=== PATIENT | female | born 1985 | race Caucasian/White ===

== ENCOUNTER 2018-12-26 04:01 | Emergency (ER) | payer SELFPAY | END 2018-12-26 06:32 | disposition home or self-care (01) | LOC: JER 04:01 ==

== ENCOUNTER 2020-09-15 23:41 | Emergency (ER) | payer SELFPAY ==
[2020-09-15 23:54] VITALS: BP 116/73; PULSE 82; TEMP 98.2; BMI 37.2
[2020-09-16] MEDS ORDERED: DIPHTH,PERTUSS(ACELL),TET 0.5 ML DISP.SYRIN IM ONE ×2 (00:21→00:26)
== END 2020-09-16 01:24 | disposition home or self-care (01) ==
LOC: JER 23:41
PROC: 3E0234Z Introduction of Serum, Toxoid and Vaccine into Muscle, Percutaneous Approach (ICD-10-PCS; principal; 2020-09-15)
PROC: 0HQFXZZ Repair Right Hand Skin, External Approach (ICD-10-PCS; 2020-09-15)
DX: S61.210A Laceration without foreign body of right index finger without damage to nail, initial encounter (principal)
CPT/HCPCS: 90715; 99284-25

== ENCOUNTER 2020-12-28 15:58 | Emergency (ER) | payer SELFPAY ==
[2020-12-28 16:22] VITALS: BP 122/76; PULSE 74; TEMP 98.3; BMI 29.2
== END 2020-12-28 17:18 | disposition home or self-care (01) ==
LOC: JERFT 15:58
DX: H00.015 Hordeolum externum left lower eyelid (principal)
CPT/HCPCS: 99283-25

== ENCOUNTER 2021-07-26 16:43 | Emergency (ER) | payer SELFPAY ==
[2021-07-26 16:55] VITALS: BP 101/54; PULSE 70; TEMP 98.3; BMI 29.2
[2021-07-26] MEDS ORDERED: SODIUM CHLORIDE 1,000 ML IV STA (17:19)
[2021-07-26 18:03] LABS: HCG,QUALITATIVE URINE Positive
[2021-07-26 18:06] LABS: EPI CELLS >36 /uL (0-25.1); HYALINE CASTS 0 /uL (0-3.1); PH,URINE 7.5 (5.0-8.0); URINE APPEARANCE CLEAR; URINE BILIRUBIN NEGATIVE (NEGATIVE); URINE COLOR YELLOW; URINE GLUCOSE (UA) NEGATIVE (NEGATIVE); URINE KETONE NEGATIVE (NEGATIVE); URINE LEUK ESTERASE TRACE (NEGATIVE); URINE NITRITE NEGATIVE (NEGATIVE); URINE PROTEIN NEGATIVE (NEGATIVE); URINE RBC 2 /uL (0-23.9); URINE UROBILINOGEN 0.2 mg/dL (0.2-1.0); URINE WBC 20 /uL (0-25.8)
[2021-07-26 18:17] LABS: BASO % 0.3 % (0-2.0); EOS % 1.4 % (0-4.5); HEMATOCRIT 36.9 % (32.4-45.2); HEMOGLOBIN 12.6 GM/dL (10.7-15.3); LYMPH % 26.9 % (8-40); MCH 27.9 pg (25.7-33.7); MCHC 34.3 g/dl (32.0-36.0); MEAN CELL VOLUME 81.5 fl (80-96); MEAN PLT VOLUME 6.9 fl (7.5-11.1); MONO % 6.6 % (3.8-10.2); NEUT % 64.8 % (42.8-82.8); PLATELET COUNT 341 10^3/uL (134-434); RBC 4.52 M/mm3 (3.60-5.2); RDW 14.6 % (11.6-15.6); WHITE BLOOD COUNT 9.3 K/mm3 (4.0-10.0)
[2021-07-26 18:27] LABS: INR 1.05 (0.83-1.09); PROTHROMBIN TIME (PATIENT) 12.1 SEC (9.7-13.0)
[2021-07-26 18:30] LABS: ACTIVATED PTT 29.8 SECONDS (25.2-36.5)
[2021-07-26 18:38] LABS: ALBUMIN 2.9 g/dl (3.4-5.0); BLOOD UREA NITROGEN 8.4 mg/dL (7-18)
[2021-07-26 18:41] LABS: CREATININE 0.6 mg/dL (0.55-1.3)
[2021-07-26 18:42] LABS: BILIRUBIN,TOTAL 0.2 mg/dL (0.2-1); TOT PROT 7.3 g/dl (6.4-8.2)
[2021-07-26 19:11] LABS: URINE BACTERIA NONE SEEN /uL (0-1359)
== END 2021-07-26 20:48 | disposition home or self-care (01) ==
LOC: JER 16:43
PROC: 3E0337Z Introduction of Electrolytic and Water Balance Substance into Peripheral Vein, Percutaneous Approach (ICD-10-PCS; principal; 2021-07-26)
DX: O26.891 Other specified pregnancy related conditions, first trimester (principal); R10.9 Unspecified abdominal pain; Z3A.01 Less than 8 weeks gestation of pregnancy
CPT/HCPCS: 36415; 76817-TC; 80053; 81003; 83690; 84702; 84703; 85025; 85610; 85730; 87086; 99284-25

== ENCOUNTER 2021-08-24 17:34 | Emergency (ER) | payer OTHER ==
[2021-08-24 17:54] VITALS: TEMP 98.6; BMI 37.5
[2021-08-24] MEDS ORDERED: SODIUM CHLORIDE 0.9% 500 ML INFUS.BAG IV ONE (19:38)
[2021-08-24 20:26] LABS: BASO % 0.2 % (0-2.0); HEMOGLOBIN 12.3 GM/dL (10.7-15.3); LYMPH % 22.6 % (8-40); MCHC 34.2 g/dl (32.0-36.0); MEAN PLT VOLUME 7.2 fl (7.5-11.1); MONO % 5.2 % (3.8-10.2); PLATELET COUNT 333 10^3/uL (134-434); RDW 13.9 % (11.6-15.6); WHITE BLOOD COUNT 10.8 K/mm3 (4.0-10.0)
[2021-08-24 20:41] LABS: BLOOD UREA NITROGEN 7.6 mg/dL (7-18); CALCIUM 8.9 mg/dL (8.5-10.1)
[2021-08-24 20:44] LABS: CREATININE 0.6 mg/dL (0.55-1.3)
[2021-08-24 20:46] LABS: BILIRUBIN,TOTAL 0.3 mg/dL (0.2-1); TOT PROT 7.5 g/dl (6.4-8.2)
[2021-08-24 21:31] LABS: EPI CELLS 20 /uL (0-25.1); HYALINE CASTS 0 /uL (0-3.1); URINE APPEARANCE CLEAR; URINE BACTERIA 144 /uL (0-1359); URINE BILIRUBIN NEGATIVE (NEGATIVE); URINE COLOR YELLOW; URINE GLUCOSE (UA) NEGATIVE (NEGATIVE); URINE KETONE NEGATIVE (NEGATIVE); URINE LEUK ESTERASE TRACE (NEGATIVE); URINE NITRITE NEGATIVE (NEGATIVE); URINE PROTEIN NEGATIVE (NEGATIVE); URINE RBC 32 /uL (0-23.9); URINE WBC 20 /uL (0-25.8)
[2021-08-24 22:04] VITALS: BP 106/69; PULSE 71
== END 2021-08-24 22:05 | disposition home or self-care (01) ==
LOC: JER 17:34
DX: O30.001 Twin pregnancy, unspecified number of placenta and unspecified number of amniotic sacs, first trimester (principal); O20.9 Hemorrhage in early pregnancy, unspecified; O23.591 Infection of other part of genital tract in pregnancy, first trimester; Z3A.09 9 weeks gestation of pregnancy
CPT/HCPCS: 36415; 76817-TC; 80053; 81003; 84702; 85025; 86850; 86900; 86901; 87086; 99284-25

== ENCOUNTER 2021-12-08 20:34 | Emergency (ER) | payer OTHER ==
[~2021-12-08 20:34] MED LIST: ceFAZolin 2 GRAM PREMIX BAG IVPB ONE
[2021-12-08 20:50] VITALS: BMI 37.8
[2021-12-08 22:39] LABS: EPI CELLS 12 /uL (0-25.1); HYALINE CASTS 4 /uL (0-3.1); PH,URINE 6.5 (5.0-8.0); URINE APPEARANCE CLEAR; URINE BACTERIA 421 /uL (0-1359); URINE BILIRUBIN NEGATIVE (NEGATIVE); URINE COLOR DK YELLOW; URINE GLUCOSE (UA) NEGATIVE (NEGATIVE); URINE KETONE TRACE (NEGATIVE); URINE LEUK ESTERASE 2+ (NEGATIVE); URINE NITRITE NEGATIVE (NEGATIVE); URINE PROTEIN TRACE (NEGATIVE); URINE RBC 14 /uL (0-23.9); URINE WBC 259 /uL (0-25.8)
[2021-12-08] MEDS ORDERED: LACTATED RINGERS SOLUTION 1,000 ML IV ONE (23:30)
[2021-12-08] MEDS ORDERED: ceFAZolin SODIUM 1 GM VIAL ONE (23:43)
[2021-12-09] MEDS ORDERED: CEFAZOLIN SODIUM 2 GM in DEXTROSE 5%-WATER 100 ML IVPB ONE (00:45)
[2021-12-09] MEDS ORDERED: LACTATED RINGERS SOLUTION 1,000 ML/1,000 ML INFUS.BAG IV SCH (00:45)
[2021-12-09 01:26] VITALS: BP 102/55; PULSE 77; RESP 18; TEMP 98
== END 2021-12-09 02:37 | disposition home or self-care (01) ==
LOC: JER 20:34
DX: O30.002 Twin pregnancy, unspecified number of placenta and unspecified number of amniotic sacs, second trimester (principal); O34.32 Maternal care for cervical incompetence, second trimester; Z3A.25 25 weeks gestation of pregnancy
CPT/HCPCS: 76815; 81003; 87086; 99281-25

== ENCOUNTER 2021-12-28 02:23 | Emergency (ER) | payer OTHER ==
[2021-12-28 02:46] VITALS: RESP 20; BMI 33.8
[2021-12-28] MEDS ORDERED: SODIUM CHLORIDE 0.9% 500 ML INFUS.BAG IV ONE (03:31)
[2021-12-28] MEDS ORDERED: ONDANSETRON 4 MG/2 ML VIAL IVPUSH ONE (03:31)
[2021-12-28] MEDS ORDERED: FAMOTIDINE 20 MG/50 ML IVPB 20 MG/50 ML MG IVPB ONE ×2 (03:31→03:54)
[2021-12-28] MEDS ORDERED: ONDANSETRON 4 MG/2 ML VIAL ONE (03:55)
[2021-12-28 04:39] LABS: CALCIUM 8.5 mg/dL (8.5-10.1)
[2021-12-28 04:40] LABS: ALBUMIN 2.9 g/dl (3.4-5.0); BLOOD UREA NITROGEN 15.8 mg/dL (7-18)
[2021-12-28 04:43] LABS: CREATININE 0.9 mg/dL (0.55-1.3)
[2021-12-28 04:45] LABS: BILIRUBIN,TOTAL 0.2 mg/dL (0.2-1); TOT PROT 6.8 g/dl (6.4-8.2)
[2021-12-28 05:08] LABS: BASO % 0.8 % (0-2.0); EOS % 5.6 % (0-4.5); HEMATOCRIT 31.2 % (32.4-45.2); HEMOGLOBIN 10.5 GM/dL (10.7-15.3); LYMPH % 22.9 % (8-40); MCH 28.5 pg (25.7-33.7); MCHC 33.7 g/dl (32.0-36.0); MEAN CELL VOLUME 84.6 fl (80-96); MEAN PLT VOLUME 7.4 fl (7.5-11.1); MONO % 6.1 % (3.8-10.2); NEUT % 64.6 % (42.8-82.8); PLATELET COUNT 402 10^3/uL (134-434); RBC 3.69 M/mm3 (3.60-5.2); RDW 13.8 % (11.6-15.6); WHITE BLOOD COUNT 10.2 K/mm3 (4.0-10.0)
[2021-12-28] MEDS ORDERED: ACETAMINOPHEN 1000 MG/100 ML BAG IVPB ONE (05:32)
[2021-12-28] MEDS ORDERED: ACETAMINOPHEN INJECTION 100 ML IVPB ONE (05:32)
[2021-12-28 05:59] LABS: EPI CELLS 18 /uL (0-25.1); HYALINE CASTS 0 /uL (0-3.1); PH,URINE 5.5 (5.0-8.0); URINE APPEARANCE CLEAR; URINE BACTERIA 196 /uL (0-1359); URINE BILIRUBIN NEGATIVE (NEGATIVE); URINE COLOR YELLOW; URINE GLUCOSE (UA) NEGATIVE (NEGATIVE); URINE KETONE NEGATIVE (NEGATIVE); URINE LEUK ESTERASE NEGATIVE (NEGATIVE); URINE NITRITE NEGATIVE (NEGATIVE); URINE PROTEIN NEGATIVE (NEGATIVE); URINE RBC 18 /uL (0-23.9); URINE UROBILINOGEN 0.2 mg/dL (0.2-1.0); URINE WBC 11 /uL (0-25.8)
[2021-12-28 10:18] VITALS: BP 102/59; PULSE 54; TEMP 97
== END 2021-12-28 10:52 | disposition home or self-care (01) ==
LOC: JER 02:23
PROC: 3E0333Z Introduction of Anti-inflammatory into Peripheral Vein, Percutaneous Approach (ICD-10-PCS; principal; 2021-12-28)
PROC: 3E033GC Introduction of Other Therapeutic Substance into Peripheral Vein, Percutaneous Approach (ICD-10-PCS; 2021-12-28)
PROC: 3E033GC Introduction of Other Therapeutic Substance into Peripheral Vein, Percutaneous Approach (ICD-10-PCS; 2021-12-28)
DX: K80.80 Other cholelithiasis without obstruction (principal)
CPT/HCPCS: 0241U-QW; 36415; 76705-TC; 80053; 81003; 83690; 84703; 85025; 87086; 87186; 93005; 93010; 99285-25

== ENCOUNTER 2022-01-08 19:10 | Inpatient (IN) | payer OTHER ==
[2022-01-08] MEDS ORDERED: ACETAMINOPHEN 1000 MG/100 ML BAG IVPB ONE (19:54)
[2022-01-08] MEDS ORDERED: ONDANSETRON 4 MG/2 ML VIAL IVPUSH ONE (19:54)
[2022-01-08] MEDS ORDERED: SODIUM CHLORIDE 0.9% 500 ML INFUS.BAG IV ONE (19:54)
[2022-01-08] MEDS ORDERED: ACETAMINOPHEN INJECTION 100 ML IVPB ONE (20:12)
[2022-01-08] MEDS ORDERED: ONDANSETRON 4 MG/2 ML VIAL ONE (20:12)
[2022-01-08 20:46] LABS: BASO % 0.7 % (0-2.0); EOS % 2.5 % (0-4.5); HEMATOCRIT 33.6 % (32.4-45.2); HEMOGLOBIN 11.2 GM/dL (10.7-15.3); LYMPH % 21.4 % (8-40); MCH 27.3 pg (25.7-33.7); MCHC 33.3 g/dl (32.0-36.0); MEAN CELL VOLUME 82.1 fl (80-96); MEAN PLT VOLUME 8.1 fl (7.5-11.1); MONO % 6.4 % (3.8-10.2); PLATELET COUNT 374 10^3/uL (134-434); RBC 4.09 M/mm3 (3.60-5.2); RDW 13.4 % (11.6-15.6); WHITE BLOOD COUNT 8.8 K/mm3 (4.0-10.0)
[2022-01-08 20:53] LABS: INR 0.99 (0.83-1.09); PROTHROMBIN TIME (PATIENT) 11.4 SEC (9.7-13.0)
[2022-01-08 20:56] LABS: ACTIVATED PTT 18.5 SECONDS (25.2-36.5)
[2022-01-08 21:15] LABS: ALBUMIN 2.5 g/dl (3.4-5.0); CALCIUM 7.4 mg/dL (8.5-10.1)
[2022-01-08 21:16] LABS: BLOOD UREA NITROGEN 11.3 mg/dL (7-18)
[2022-01-08 21:18] LABS: CREATININE 0.5 mg/dL (0.55-1.3)
[2022-01-08 21:20] LABS: BILIRUBIN,TOTAL 0.8 mg/dL (0.2-1); TOT PROT 5.8 g/dl (6.4-8.2)
[2022-01-08] MEDS ORDERED: morphine CARPU-JECT 4 MG/1 ML DISP.SYRIN IVPUSH ONE (21:44)
[2022-01-08 21:46] LABS: EPI CELLS 29 /uL (0-25.1); HYALINE CASTS 2 /uL (0-3.1); PH,URINE 6.5 (5.0-8.0); URINE APPEARANCE CLEAR; URINE BACTERIA 255 /uL (0-1359); URINE BILIRUBIN 1+ (NEGATIVE); URINE COLOR DK YELLOW; URINE GLUCOSE (UA) NEGATIVE (NEGATIVE); URINE KETONE TRACE (NEGATIVE); URINE LEUK ESTERASE TRACE (NEGATIVE); URINE NITRITE NEGATIVE (NEGATIVE); URINE PROTEIN TRACE (NEGATIVE); URINE RBC 851 /uL (0-23.9); URINE WBC 32 /uL (0-25.8)
[2022-01-08] MEDS ORDERED: CEFTRIAXONE 1 GM in DEXTROSE 5%-WATER - 50 ML IVPB ONE (21:53)
[2022-01-08] MEDS ORDERED: morphine SULFATE 4 MG/ML VIAL ONE (22:10)
[2022-01-08] MEDS ORDERED: CEFTRIAXONE 1 GM/50 ML BAG ONE (22:10)
[2022-01-08] MEDS ORDERED: DEXTROSE 5%-NORMAL SALINE 1,000 ML IV SCH (23:00)
[2022-01-08] MEDS ORDERED: ONDANSETRON 4 MG/2 ML VIAL IVPUSH PRN (23:01)
[2022-01-09 07:07] LABS: BASO % 0.5 % (0-2.0); EOS % 4.6 % (0-4.5); HEMATOCRIT 31.9 % (32.4-45.2); HEMOGLOBIN 10.6 GM/dL (10.7-15.3); LYMPH % 31.5 % (8-40); MCH 27.7 pg (25.7-33.7); MCHC 33.4 g/dl (32.0-36.0); MEAN CELL VOLUME 83.1 fl (80-96); MEAN PLT VOLUME 7.6 fl (7.5-11.1); MONO % 8.5 % (3.8-10.2); NEUT % 54.9 % (42.8-82.8); PLATELET COUNT 305 10^3/uL (134-434); RBC 3.84 M/mm3 (3.60-5.2); RDW 13.7 % (11.6-15.6); WHITE BLOOD COUNT 5.4 K/mm3 (4.0-10.0)
[2022-01-09 07:16] LABS: CALCIUM 8.2 mg/dL (8.5-10.1)
[2022-01-09 07:17] LABS: ALBUMIN 2.7 g/dl (3.4-5.0); BLOOD UREA NITROGEN 10.4 mg/dL (7-18)
[2022-01-09 07:20] LABS: CREATININE 0.6 mg/dL (0.55-1.3)
[2022-01-09 07:22] LABS: BILIRUBIN,TOTAL 1.3 mg/dL (0.2-1); TOT PROT 6.3 g/dl (6.4-8.2)
[2022-01-09] MEDS ORDERED: INDOMETHACIN 50 MG RECTAL SUPPOSITORY PR ONE (08:38)
[2022-01-09] MEDS ORDERED: PIPERACILLIN/TAZOB 3.375 GM 3.375 GM in DEXTROSE 5%-WATER - 50 ML IVPB SCH (10:00)
[2022-01-09] MEDS ORDERED: CEFTRIAXONE 2 GM in DEXTROSE 5%-WATER 100 ML IVPB SCH (10:00)
[2022-01-09] MEDS ORDERED: PIPERACILLIN/TAZOB 3.375 GM 3.375 GM/50 ML BAG IVPB ONE ×2 (10:06→17:28)
[2022-01-09] MEDS: PIPERACILLIN/TAZOB 3.375 GM 3.375 GM in DEXTROSE 5%-WATER - 50 ML IVPB SCH (17:44)
[2022-01-10] MEDS: PIPERACILLIN/TAZOB 3.375 GM 3.375 GM in DEXTROSE 5%-WATER - 50 ML IVPB SCH ×2 (01:39→09:06)
[2022-01-10 09:46] LABS: BASO % 0.5 % (0-2.0); EOS % 5.1 % (0-4.5); HEMATOCRIT 31.9 % (32.4-45.2); HEMOGLOBIN 10.8 GM/dL (10.7-15.3); LYMPH % 23.9 % (8-40); MCH 27.6 pg (25.7-33.7); MCHC 33.9 g/dl (32.0-36.0); MEAN CELL VOLUME 81.3 fl (80-96); MEAN PLT VOLUME 7.1 fl (7.5-11.1); MONO % 6.2 % (3.8-10.2); NEUT % 64.3 % (42.8-82.8); PLATELET COUNT 319 10^3/uL (134-434); RBC 3.92 M/mm3 (3.60-5.2); RDW 13.7 % (11.6-15.6); WHITE BLOOD COUNT 8.1 K/mm3 (4.0-10.0)
[2022-01-10 10:23] LABS: ALBUMIN 2.6 g/dl (3.4-5.0); CALCIUM 8.5 mg/dL (8.5-10.1)
[2022-01-10 10:26] LABS: CREATININE 0.6 mg/dL (0.55-1.3)
[2022-01-10 10:28] LABS: TOT PROT 6.1 g/dl (6.4-8.2)
[2022-01-10 10:32] LABS: BILIRUBIN,TOTAL 0.6 mg/dL (0.2-1)
[2022-01-10] MEDS ORDERED: PROPOFOL 20 ML ONE (11:01)
[2022-01-10] MEDS ORDERED: ROCURONIUM BROMIDE 50 MG/5 ML SYRINGE ONE (11:01)
[2022-01-10] MEDS ORDERED: MIDAZOLAM HCL 2 MG/2 ML SINGLE DOSE VIAL ONE (11:02)
[2022-01-10] MEDS ORDERED: HYDROmorphone HCl 2 MG/ML VIAL ONE (11:27)
[2022-01-10] MEDS ORDERED: KETOROLAC TROMETHAMINE 30 MG/1 ML VIAL ONE (12:07)
[2022-01-10] MEDS ORDERED: GLYCOPYRROLATE 0.2 MG/1 ML VIAL ONE (12:07)
[2022-01-10] MEDS ORDERED: BUPIVACAINE HCL/PF 0.5% (5MG/ML) 10 ML VIAL IJ ONE ×2 (12:12)
[2022-01-10] MEDS ORDERED: oxyCODONE HCL 5 MG TABLET PO PRN (12:41)
[2022-01-10] MEDS ORDERED: INDOMETHACIN 50 MG RECTAL SUPPOSITORY PR ONE (12:49)
[2022-01-10] MEDS ORDERED: ONDANSETRON 4 MG/2 ML VIAL IVPUSH PRN (12:49)
[2022-01-10] MEDS ORDERED: LACTATED RINGERS SOLUTION 1,000 ML IV SCH (13:30)
[2022-01-10] MEDS: DEXTROSE 5%-NORMAL SALINE 1,000 ML IV SCH (14:09)
[2022-01-10 15:39] VITALS: BMI 37.0
[2022-01-10] MEDS: oxyCODONE HCL 5 MG TABLET PO PRN ×2 (17:06→22:05)
[2022-01-11] MEDS: DEXTROSE 5%-NORMAL SALINE 1,000 ML IV SCH ×2 (06:15→12:13)
[2022-01-11 08:21] LABS: BASO % 0.5 % (0-2.0); EOS % 5.4 % (0-4.5); HEMOGLOBIN 10.1 GM/dL (10.7-15.3); LYMPH % 21.4 % (8-40); MCH 26.6 pg (25.7-33.7); MCHC 32.5 g/dl (32.0-36.0); MEAN CELL VOLUME 81.8 fl (80-96); MEAN PLT VOLUME 7.6 fl (7.5-11.1); MONO % 6.3 % (3.8-10.2); NEUT % 66.4 % (42.8-82.8); PLATELET COUNT 313 10^3/uL (134-434); RDW 13.8 % (11.6-15.6); WHITE BLOOD COUNT 11.7 K/mm3 (4.0-10.0)
[2022-01-11 08:39] LABS: ALBUMIN 2.4 g/dl (3.4-5.0); CALCIUM 8.1 mg/dL (8.5-10.1)
[2022-01-11 08:40] LABS: BLOOD UREA NITROGEN 3.7 mg/dL (7-18)
[2022-01-11 08:43] LABS: CREATININE 0.6 mg/dL (0.55-1.3)
[2022-01-11 08:44] LABS: BILIRUBIN,TOTAL 0.4 mg/dL (0.2-1); TOT PROT 5.7 g/dl (6.4-8.2)
[2022-01-11] MEDS: oxyCODONE HCL 5 MG TABLET PO PRN (11:20)
[2022-01-12 15:19] VITALS: BP 114/55; PULSE 56; RESP 18; TEMP 98.2
== END 2022-01-12 18:16 | disposition home or self-care (01) | DRG 263 ==
LOC: JER 19:10 → JERBED 21:54 → J5S 01-09 17:57
PROVIDERS: ADMIT Internal Medicine; ATTEND Family Medicine
PROC: 0FT44ZZ Resection of Gallbladder, Percutaneous Endoscopic Approach (ICD-10-PCS; principal; 2022-01-10 10:00)
DX: K80.00 Calculus of gallbladder with acute cholecystitis without obstruction (principal); E66.9 Obesity, unspecified; R74.01 Elevation of levels of liver transaminase levels; R79.89 Other specified abnormal findings of blood chemistry; Z68.37 Body mass index [BMI] 37.0-37.9, adult
CPT/HCPCS: 36415; 74181-TC; 76705-TC; 80053; 81003; 83690; 84703; 85025; 85610; 85730; 86850; 86900; 86901; 87086; 88304-TC; 93005; 93010; 94760; 99285-25; C9803-CS; U0003; U0005

== ENCOUNTER 2022-06-05 23:47 | Emergency (ER) | payer OTHER ==
[2022-06-06 00:03] VITALS: BP 121/46; PULSE 79; RESP 16; TEMP 98.1; BMI 37.8
[2022-06-06] MEDS ORDERED: ACETAMINOPHEN 1000 MG/100 ML BAG IVPB ONE (00:38)
[2022-06-06] MEDS ORDERED: ACETAMINOPHEN INJECTION 100 ML IVPB ONE (00:46)
[2022-06-06 01:04] LABS: BASO % 0.9 % (0-2.0); EOS % 3.1 % (0-4.5); HEMATOCRIT 31.9 % (32.4-45.2); HEMOGLOBIN 10.9 GM/dL (10.7-15.3); LYMPH % 28.6 % (8-40); MCHC 34.2 g/dl (32.0-36.0); MEAN CELL VOLUME 73.3 fl (80-96); MONO % 6.1 % (3.8-10.2); NEUT % 61.3 % (42.8-82.8); PLATELET COUNT 387 10^3/uL (134-434); RBC 4.36 M/mm3 (3.60-5.2); RDW 16.9 % (11.6-15.6); WHITE BLOOD COUNT 11.9 K/mm3 (4.0-10.0)
[2022-06-06 01:12] LABS: INR 1.11 (0.83-1.09); PROTHROMBIN TIME (PATIENT) 12.9 SEC (9.7-13.0)
[2022-06-06 01:15] LABS: ACTIVATED PTT 26.9 SECONDS (25.2-36.5)
[2022-06-06 01:34] LABS: CALCIUM 8.7 mg/dL (8.5-10.1)
[2022-06-06 01:35] LABS: ALBUMIN 3.1 g/dl (3.4-5.0); BLOOD UREA NITROGEN 12.4 mg/dL (7-18)
[2022-06-06 01:38] LABS: CREATININE 0.7 mg/dL (0.55-1.3)
[2022-06-06 01:40] LABS: BILIRUBIN,TOTAL 0.2 mg/dL (0.2-1); TOT PROT 7.4 g/dl (6.4-8.2)
== END 2022-06-06 03:54 | disposition home or self-care (01) ==
LOC: JER 23:47
PROC: 3E033GC Introduction of Other Therapeutic Substance into Peripheral Vein, Percutaneous Approach (ICD-10-PCS; principal; 2022-06-05)
DX: S00.83XA Contusion of other part of head, initial encounter (principal); M25.561 Pain in right knee; M25.571 Pain in right ankle and joints of right foot; W01.0XXA Fall on same level from slipping, tripping and stumbling without subsequent striking against object, initial encounter
CPT/HCPCS: 36415; 70450-TC; 70486-TC; 72125-TC; 73562-TC-RT-FY; 73610-TC-RT-FY; 73630-TC-RT-FY; 74177-TC; 80053; 84703; 85025; 85610; 85730; 86850; 86900; 86901; 99285-25

== ENCOUNTER 2023-02-27 20:10 | Emergency (ER) | payer OTHER ==
[2023-02-27 20:20] VITALS: BP 115/52; PULSE 61; RESP 18; TEMP 98; BMI 39.9
[2023-02-27] MEDS ORDERED: LIDOCAINE HCL 1%, 10 MG/ML (50 mL VIAL) SQ ONE (21:04)
[2023-02-27] MEDS ORDERED: LIDOCAINE HCL 2% (20ML MULTI-DOSE VIAL) ONE (21:07)
[2023-02-27] MEDS ORDERED: LIDOCAINE HCL 1%, 10 MG/ML (20ML VIAL) ONE (21:07)
[2023-02-27] MEDS ORDERED: MAG HYDROX/AL HYDROX/SIMETH 30 ML UNIT-DOSE CUP ONE (22:13)
== END 2023-02-27 22:15 | disposition home or self-care (01) ==
LOC: JERFT 20:10
PROC: 0HBRXZZ Excision of Toe Nail, External Approach (ICD-10-PCS; principal; 2023-02-27)
DX: M79.675 Pain in left toe(s) (principal); L60.0 Ingrowing nail
CPT/HCPCS: 99282-25

== ENCOUNTER 2023-05-12 23:29 | Emergency (ER) | payer OTHER ==
[2023-05-12 23:34] VITALS: BP 113/73; PULSE 86; RESP 17; TEMP 97.9; BMI 40.6
[2023-05-13] MEDS ORDERED: ACETAMINOPHEN 325 MG TABLET (FP) PO ONE (00:20)
[2023-05-13] MEDS ORDERED: ACETAMINOPHEN 325 MG TABLET (FP) ONE (00:35)
[2023-05-13 01:02] LABS: URINE APPEARANCE CLEAR; URINE BILIRUBIN NEGATIVE (NEGATIVE); URINE COLOR YELLOW; URINE GLUCOSE (UA) NEGATIVE (NEGATIVE); URINE KETONE NEGATIVE (NEGATIVE); URINE LEUK ESTERASE NEGATIVE (NEGATIVE); URINE NITRITE NEGATIVE (NEGATIVE); URINE PROTEIN TRACE (NEGATIVE)
== END 2023-05-13 04:31 | disposition home or self-care (01) ==
LOC: JER 23:29
DX: M54.6 Pain in thoracic spine (principal); R10.30 Lower abdominal pain, unspecified; R35.0 Frequency of micturition; R19.7 Diarrhea, unspecified; Z20.822 Contact with and (suspected) exposure to COVID-19
CPT/HCPCS: 0241U-QW; 72128-TC; 72131-TC; 81003; 84703; 87086; 99285-25

== ENCOUNTER 2023-07-28 11:50 | Emergency (ER) | payer OTHER ==
[2023-07-28 11:59] VITALS: BP 114/64; PULSE 84; RESP 18; TEMP 98; BMI 37.8
[2023-07-28] MEDS ORDERED: KETOROLAC TROMETHAMINE 30 MG/1 ML VIAL ONE (12:51)
[2023-07-28] MEDS: KETOROLAC TROMETHAMINE 30 MG/1 ML VIAL IM ONE (12:56)
== END 2023-07-28 13:36 | disposition home or self-care (01) ==
LOC: JERFT 11:50
PROC: 2W3FX1Z Immobilization of Left Hand using Splint (ICD-10-PCS; principal; 2023-07-28)
DX: S49.92XA Unspecified injury of left shoulder and upper arm, initial encounter (principal); W10.8XXA Fall (on) (from) other stairs and steps, initial encounter
CPT/HCPCS: 73030-TC-LT-FY; 99284-25

== ENCOUNTER 2023-08-21 21:20 | Emergency (ER) | payer OTHER ==
[2023-08-21 21:28] VITALS: BP 105/63; PULSE 78; RESP 20; TEMP 98.6; BMI 39.2
[2023-08-21] MEDS ORDERED: ACETAMINOPHEN 325 MG TABLET (FP) ONE (21:47)
[2023-08-21] MEDS: ACETAMINOPHEN 325 MG TABLET (FP) PO ONE (21:48)
== END 2023-08-21 22:21 | disposition home or self-care (01) ==
LOC: JERFT 21:20
DX: R09.81 Nasal congestion (principal); J02.9 Acute pharyngitis, unspecified
CPT/HCPCS: 87070; 99283-25

== ENCOUNTER 2023-10-27 22:24 | Emergency (ER) | payer OTHER ==
[2023-10-27 22:32] VITALS: BP 119/54; PULSE 80; RESP 20; TEMP 97.7; BMI 29.9
[2023-10-27] MEDS: ACETAMINOPHEN 325 MG TABLET (FP) PO ONE (23:35)
[2023-10-27] MEDS ORDERED: METHOCARBAMOL 500 MG TABLET ONE (23:39)
[2023-10-27] MEDS ORDERED: LIDOCAINE 4% PATCH TP ONE (23:40)
[2023-10-27] MEDS ORDERED: KETOROLAC TROMETHAMINE 15 MG/ML VIAL ONE (23:40)
[2023-10-28] MEDS: METHOCARBAMOL 500 MG TABLET PO ONE (00:14)
[2023-10-28] MEDS: LIDOCAINE PATCH REMOVAL MC SCH (00:14)
[2023-10-28] MEDS: LIDOCAINE 4% PATCH TP ONE (00:14)
[2023-10-28] MEDS: KETOROLAC TROMETHAMINE 15 MG/ML VIAL IM ONE (00:14)
== END 2023-10-28 00:26 | disposition home or self-care (01) ==
LOC: JER 22:24
PROC: 3E0233Z Introduction of Anti-inflammatory into Muscle, Percutaneous Approach (ICD-10-PCS; principal; 2023-10-27)
DX: M54.2 Cervicalgia (principal)
CPT/HCPCS: 99284-25